=== PATIENT | male | born 1955 | race Caucasian/White ===

== ENCOUNTER → 2020-06-12 08:00 | Outpatient (BNVA) | payer SELFPAY | PROVIDERS: Visit Provider Physician Assistant Medical | DX: Z02.79 Encounter for issue of other medical certificate (principal) ==

== ENCOUNTER 2021-01-05 06:58 | Emergency (ER) | payer OTHER, SELFPAY ==
[2021-01-05] VITALS (10 sets, daily range): BP systolic 113–153; BP diastolic 80–98; PULSE 116–127; RESP 15–19; TEMP 36.5–36.9; O2SAT 96–98; BMI 47.7
--- NOTE | 2021-01-05 | ECG_ITS ---
Test Reason : CP Blood Pressure : / mmHG Vent. Rate : 122 BPM Atrial Rate : 122 BPM P-R Int : 208 ms QRS Dur : 106 ms QT Int : 312 ms P-R-T Axes : 000 -50 105 degrees QTc Int : 444 ms Sinus tachycardia with 1st degree A-V block with Premature supraventricular complexes Left anterior fascicular block Abnormal QRS-T angle, consider primary T wave abnormality Abnormal ECG No previous ECGs available Referred By: Solomon Yancey Electronically Signed By:REID DA SILVA
--- NOTE | ~2021-01-05 | XR_ITS ---
EXAMINATION: XR CHEST CLINICAL INFORMATION: Chest pain COMPARISON: None TECHNIQUE: Portable 9:14 AM view of the chest was obtained. FINDINGS: Low lung volumes. Evidence of previous cardiac surgery. Valvular replacement heart size is moderately enlarged. Findings favor CHF with cephalization of the pulmonary vasculature and fissural fluid. No major zones of airspace disease. No ectopic air. XR/XR chest 1V IMPRESSION: CHF as above.
--- NOTE | ~2021-01-05 | CT_ITS ---
EXAMINATION: CT HEAD WITHOUT CONTRAST CLINICAL INFORMATION: Lightheadedness. COMPARISON: None TECHNIQUE: Contiguous axial imaging was performed from the skull base to vertex without intravenous administration of contrast. Additional 2-D coronal and sagittal reformatted images are generated on the CT workstation and uploaded to PACS. This CT examination was performed using dose optimization techniques as appropriate, variously including the following: *Automated exposure control *Adjustment of mA and/or kV according to patient size (this includes techniques or standardized protocols for targeted exams where dose is matched to indication/reason for exam; i.e. extremities or head) *Use of iterative reconstruction technique DLP: 697 mGy-cm FINDINGS: There is no intracranial hemorrhage, hematoma, or extra-axial fluid collection. The ventricles are normal in size. There is no hydrocephalus, edema, or mass effect. There is subtle periventricular white matter gliosis suggested, slightly more conspicuous on the left. No edema or mass effect. No midline shift. There is no visible acute territorial infarct or mass lesion. The calvarium appears intact. There is no pneumocephalus or orbital emphysema. The visualized sinuses and middle ears and mastoid air cells show no significant mucosal thickening. There are no air-fluid levels. CT/CT head/brain wo con IMPRESSION: 1. No intracranial hemorrhage, hydrocephalus, or edema. 2. Subtle periventricular white matter gliosis, more conspicuous on the left. This may suggest chronic small vessel ischemic change. If clinically indicated, MRI may be considered for further characterization.
--- NOTE | 2021-01-05 09:11 | PC.NURSE ---
pt being seen by provider at this time
--- NOTE | 2021-01-05 10:00 | ED.GENADULT ---
HPI - General Adult General Chief complaint: Dizziness Stated complaint: dizziness Time Seen by Provider: 01/05/21 09:07 Source: patient Mode of arrival: ambulatory Limitations: no limitations History of Present Illness HPI narrative: Patient presents ED resolved dizziness described as lightheadedness and resolved chest palpitation. patient denies any room swimming or himself swimming. Patient states while driving in his car he felt lightheaded/tired and then had some heart palpitations. Patient denies any shortness of breath, slurred speech, loss of vision, or paralysis of extremities. Patient denies any leg swelling or calf pain. Patient states being compliant with his Lovenox twice a day injection. Patient denies any recent head trauma. Patient states no abdominal pain, chest pain, shortness of breath, leg swelling, calf pain, fever, chills. Patient states vaccinated against COVID. Presently patient is asymptomatic. Related Data Allergies Allergy/AdvReac Type Severity Reaction Status Date / Time No Known Allergies Allergy Verified 01/05/21 08:17 Review of Systems Review of Systems: Yes all other systems are reviewed and are negative Constitutional: Constitutional: Reports as per HPI and Reports no additional constitutional complaints Eyes: Eyes: Reports as per HPI and Reports no additional eye complaints ENT: Reports system reviewed and no additional complaints, except as documented, Reports as per HPI and Reports dizziness (described as lightheadedness) Cardiovascular: Cardiovascular: Reports as per HPI and Reports no additional cardiovascular complaints Comments: Heart palpitations Respiratory: Respiratory: Reports as per HPI and Reports no additional respiratory complaints Gastrointestinal: Gastrointestinal: Reports as per HPI and Reports no additional gastrointestinal complaints Genitourinary: Genitourinary: Reports no additional male genitourinary complaints and Reports as per HPI Musculoskeletal: Musculoskeletal: Reports no additional musculoskeletal complaints and Reports as per HPI Neurologic: Reports system reviewed and no additional complaints, except as documented, Reports as per HPI and Reports dizziness (described as lightheadedness) Psychiatric: Psychiatric: Reports no additional psychiatric complaints [facility] Past Medical History Medical History (Updated 01/06/21 @ 00:02 by Murali Marino) Aortic aneurysm Low iron Pulmonary embolism Surgical History (Updated 01/05/21 @ 08:16 by Nery Cobb) Heart valve replaced Social History Social History Advance Directives: No Advance Directives Information Provided: No Physical Exam Vital Signs: Vital Signs: Last Vital Signs Temp 97.7 F 01/05/21 15:27 Pulse 125 H 01/05/21 15:27 Resp 16 01/05/21 15:27 BP 128/91 H 01/05/21 15:27 Pulse Ox 96 01/05/21 15:27 Body Mass Index 47.7 Const: General: cooperative, healthy appearing, comfortable, no acute distress, well developed, alert and awake Orientation/consciousness: patient oriented x3 HENMT: Head: Yes normal to inspection, Yes No palpable skull fracture present, Yes normocephalic and Yes atraumatic Eyes: General: appearance normal, both eyes and all related structures Neck: Neck: Yes normal visual inspection, Yes full ROM, Yes no lymphadenopathy, Yes no meningeal signs, Yes trachea midline, Yes supple and No tender Chest: Chest palpation & inspection: normal inspection of the chest and normal palpation of entire chest wall Resp: Effort & Inspection: normal respiratory effort and able to speak in complete sentences Auscultation: clear to auscultation bilaterally Cardio: Jugular venous distension: no JVD Heart sounds: S1 normal heart sound present and S2 normal heart sound present GI: Inspection: Yes normal to inspection and No abdominal wall ecchymosis Palpation (GI): Soft to palpation, not firm, nontender, no guarding and not rigid : General: No CVA tenderness and Yes no CVA tenderness Back/Spine/Pelvis: Back: no CVA tenderness, No CVA tenderness and No back tenderness Skin: General skin exam: no rashes or lesions noted and elasticity normal Neuro: Other: negative slurred speech. negative facial droop. negative pronator drift. Finger to nose and rapid hand movement intact. negative rhomberg. General: patient oriented x3, gait normal, Normal light touch and pain sensation, no meningeal signs and CN's II-XI intact bilaterally Cranial nerves: Yes CN's II-XII intact bilaterally Extrem: General: Yes normal to inspection and Yes full ROM Psych: Appearance: grossly normal, well kempt and not disheveled Course Course Course Narrative: Patient presently asymptomatic. Negative for any neuro deficits. Patient tachycardic. Patient will have dry head CT. Patient will have cardiac evaluation including troponin and D-dimer. Patient also has thyroid level sent. Patient given fluids. Chest x-ray ordered. COVID swab ordered. Reevaluation(s) Reevaluation #1: Patient 1st troponin negative. Patient presently asymptomatic. D-dimer negative. Well's Score is 3. Thyroid level normal. patient given lopressor IV and fluids. Orthostatics negative. Patient walked to the bathroom with normal gait. D-dimer negative. Head CT negative for acute stroke. Unlikely patient having PE or any clots in the body not suspecting any carotid occlusion. Patient is on Lovenox b.i.d. for the past couple months since July. Case discussed with Dr. Rader and he does not believe patient needs chest CT aorta or head and neck CTA. BNP only 152. Chest x-ray negative for pneumonia. EKG negative for pneumonia. Once again patient presently asymptomatic. Patient denies any chest pain, dizziness or shorntess of breath. Time: 23:30 Reevaluation #2: Second troponin came back negative. Heart rate on monitor 118. Patient presently asymptomatic. Once again no source of infection or cause for tachycardia. D-dimer negative. Head CT normal. Chest x-ray negative for any pneumonia. Patient is not anemic. It was discussed with patient for possible observation/admission overnight and for me to speak to hospitalist to see if that is indicated, but patient refused. Patient states he has been feeling well since coming to the ER and would like to be discharged and follow-up with [employer]. Patient states he will call his account [employer] for after being discharged for pointing on Friday. Patient informed to return to the ED if he has any symptoms slurred speech, loss of vision, paralysis of extremities, weakness, dizziness, headache, chest pain, shortness of breath, or any other concerning symptoms. Time: 15:08 Medical Decision Making MDM Narrative Medical decision making narrative: Tachycardia, palpitations Lab Data Result diagrams: 01/05/21 10:02 01/05/21 10:00 Labs: Lab Results 01/05/21 01/05/21 01/05/21 Range/Units 10:00 10:00 10:00 WBC (4.8-10.8) X10*3/uL RBC (4.60-5.80) X10*6/uL Hgb (14.0-18.0) g/dl Hct (42-52) % MCV (80-98) fL MCH (27.0-33.0) pg MCHC (31.0-36.0) g/dl RDW (11.0-16.0) % Plt Count (160-400) X10*3/uL MPV (9.4-12.4) fL Immature Gran % (Auto) (0.0-0.4) % Neut % (Auto) (45-73) % Lymph % (Auto) (20-40) % Gilliam % (Auto) (2-11) % Eos % (Auto) (0-4) % Baso % (Auto) (0-2) % Lymph # (Auto) (1.2-4.9) X10*3/uL [place]illiam # (Auto) (0.1-1.2) X10*3/uL Eos # (Auto) (0.0-0.4) X10*3/uL Baso # (Auto) (0.0-0.2) X10*3/uL Abs Immat Gran (auto) (0.00-0.03) X10*3/uL Absolute Neuts (auto) (2.0-8.3) X10*3/uL Absolute Nucleated RBC (0.0-0.012) X10*3/uL Nucleated RBC % (auto) (0.0-0.2) /100WBC PT 12.4 (9.9-13.0) SEC INR 1.1 (0.9-1.1) APTT 48.4 H (24.1-38.0) SEC D-Dimer < 200 NG/ML Sodium 141 (135-145) mmol/L Potassium 4.4 (3.3-5.1) mmol/L Chloride 107 (96-108) mmol/L Carbon Dioxide 28 (22-29) mmol/L Anion Gap 10 L (12-20) BUN 17 H (9-16) mg/dL Creatinine 0.87 (0.5-1.4) mg/dL Estim Creat Clear Calc 116.7 Estimated GFR > 60 Random Glucose 91 (60-115) mg/dL Calcium 9.2 (8.4-10.2) mg/dL Total Bilirubin 0.4 (0.0-1.0) mg/dL AST 18 (5-37) U/L ALT 24 (0-40) U/L Alkaline Phosphatase 74 (39-117) U/L Troponin I High Sens 5.4 (<3.5-35.0) ng/L B-Natriuretic Peptide 152 H (<100) pg/mL Total Protein 6.1 L (6.5-8.0) g/dL Albumin 3.9 (3.5-5.0) g/dL TSH 0.78 (0.32-4.0) uIU/mL Urine Color Urine Appearance Urine pH (5.0-8.0) Ur Specific [place] (1.005-1.025) Urine Protein (NEG-TRACE) MG/DL Urine Glucose (UA) (NEG) MG/DL Urine Ketones (NEG) MG/DL Urine Blood (NEG) Urine Nitrite (NEG) Ur Leukocyte Esterase (NEG) COVID-19 ([facility]IN) (Negative) COVID-19 Clin Com 01/05/21 01/05/21 01/05/21 Range/Units 10:02 10:02 11:26 WBC 6.2 (4.8-10.8) X10*3/uL RBC 5.06 (4.60-5.80) X10*6/uL Hgb 15.0 (14.0-18.0) g/dl Hct 45.3 (42-52) % MCV 89.5 (80-98) fL MCH 29.6 (27.0-33.0) pg MCHC 33.1 (31.0-36.0) g/dl RDW 14.8 (11.0-16.0) % Plt Count 255 (160-400) X10*3/uL MPV 9.6 (9.4-12.4) fL Immature Gran % (Auto) 1.0 H (0.0-0.4) % Neut % (Auto) 57.4 (45-73) % Lymph % (Auto) 27.1 (20-40) % Gilliam % (Auto) 12.1 H (2-11) % Eos % (Auto) 1.9 (0-4) % Baso % (Auto) 0.5 (0-2) % Lymph # (Auto) 1.7 (1.2-4.9) X10*3/uL Gilliam # (Auto) 0.8 (0.1-1.2) X10*3/uL Eos # (Auto) 0.1 (0.0-0.4) X10*3/uL Baso # (Auto) 0.0 (0.0-0.2) X10*3/uL Abs Immat Gran (auto) 0.06 H (0.00-0.03) X10*3/uL Absolute Neuts (auto) 3.6 (2.0-8.3) X10*3/uL Absolute Nucleated RBC 0.000 (0.0-0.012) X10*3/uL Nucleated RBC % (auto) 0.0 (0.0-0.2) /100WBC PT (9.9-13.0) SEC INR (0.9-1.1) APTT (24.1-38.0) SEC D-Dimer NG/ML Sodium (135-145) mmol/L Potassium (3.3-5.1) mmol/L Chloride (96-108) mmol/L Carbon Dioxide (22-29) mmol/L Anion Gap (12-20) BUN (9-16) mg/dL Creatinine (0.5-1.4) mg/dL Estim Creat Clear Calc Estimated GFR Random Glucose (60-115) mg/dL Calcium (8.4-10.2) mg/dL Total Bilirubin (0.0-1.0) mg/dL AST (5-37) U/L ALT (0-40) U/L Alkaline Phosphatase (39-117) U/L Troponin I High Sens (<3.5-35.0) ng/L B-Natriuretic Peptide (<100) pg/mL Total Protein (6.5-8.0) g/dL Albumin (3.5-5.0) g/dL TSH (0.32-4.0) uIU/mL Urine Color YELLOW Urine Appearance CLEAR Urine pH 6.0 (5.0-8.0) Ur Specific [place] 1.020 (1.005-1.025) Urine Protein NEG (NEG-TRACE) MG/DL Urine Glucose (UA) NEG (NEG) MG/DL Urine Ketones NEG (NEG) MG/DL Urine Blood NEG (NEG) Urine Nitrite NEG (NEG) Ur Leukocyte Esterase NEG (NEG) COVID-19 ([facility]ALLIN) Negative (Negative) COVID-19 Clin Com See Note 01/05/21 Range/Units 13:32 WBC (4.8-10.8) X10*3/uL RBC (4.60-5.80) X10*6/uL Hgb (14.0-18.0) g/dl Hct (42-52) % MCV (80-98) fL MCH (27.0-33.0) pg MCHC (31.0-36.0) g/dl RDW (11.0-16.0) % Plt Count (160-400) X10*3/uL MPV (9.4-12.4) fL Immature Gran % (Auto) (0.0-0.4) % Neut % (Auto) (45-73) % Lymph % (Auto) (20-40) % Gilliam % (Auto) (2-11) % Eos % (Auto) (0-4) % Baso % (Auto) (0-2) % Lymph # (Auto) (1.2-4.9) X10*3/uL [place]illiam # (Auto) (0.1-1.2) X10*3/uL Eos # (Auto) (0.0-0.4) X10*3/uL Baso # (Auto) (0.0-0.2) X10*3/uL Abs Immat Gran (auto) (0.00-0.03) X10*3/uL Absolute Neuts (auto) (2.0-8.3) X10*3/uL Absolute Nucleated RBC (0.0-0.012) X10*3/uL Nucleated RBC % (auto) (0.0-0.2) /100WBC PT (9.9-13.0) SEC INR (0.9-1.1) APTT (24.1-38.0) SEC D-Dimer NG/ML Sodium (135-145) mmol/L Potassium (3.3-5.1) mmol/L Chloride (96-108) mmol/L Carbon Dioxide (22-29) mmol/L Anion Gap (12-20) BUN (9-16) mg/dL Creatinine (0.5-1.4) mg/dL Estim Creat Clear Calc Estimated GFR Random Glucose (60-115) mg/dL Calcium (8.4-10.2) mg/dL Total Bilirubin (0.0-1.0) mg/dL AST (5-37) U/L ALT (0-40) U/L Alkaline Phosphatase (39-117) U/L Troponin I High Sens 7.6 (<3.5-35.0) ng/L B-Natriuretic Peptide (<100) pg/mL Total Protein (6.5-8.0) g/dL Albumin (3.5-5.0) g/dL TSH (0.32-4.0) uIU/mL Urine Color Urine Appearance Urine pH (5.0-8.0) Ur Specific [place] (1.005-1.025) Urine Protein (NEG-TRACE) MG/DL Urine Glucose (UA) (NEG) MG/DL Urine Ketones (NEG) MG/DL Urine Blood (NEG) Urine Nitrite (NEG) Ur Leukocyte Esterase (NEG) COVID-19 ([facility]IN) (Negative) COVID-19 Clin Com ECG Data Interpretation: Sinus tachycardia with 1st degree AV block. CT 208, Vent 122, QTC 444. negatie stemi Discharge Plan Discharge Clinical Impression: Sinus tachycardia, Heart palpitations, Dizziness Patient Disposition: Home, Self-Care Instructions: Heart Palpitations (ED), Dizziness (ED), Tachycardia (ED) Additional Instructions: Your blood work came back normal. EKG and troponin negative for heart attack. D-dimer came back negative for risk of blood clot. Chest x-ray came back negative for pneumonia. BNP came back 152. Thyroid level came back normal. Your blood cell count came back normal. Urine came back negative for urinary tract infection. Head CT scan came back negative for stroke. Your COVID swab came back negative. Please call your cardiology. immediately after discharge to schedule follow-up appointment as soon as possible. Return to the ED immediately for any slurred speech, loss of vision, paralysis of extremities, facial droop, inability to walk, chest pain, shortness of breath, leg swelling, calf pain, coughing up blood, or any other concerning symptoms. Interventions: ED Discharge Assessment Last Done: 01/05/21 15:45 Discharge Date/Time: 01/05/21 15:45 Print Language: Monegasque
[2021-01-05 10:09] LABS: MANUAL DIFF FLAG NO
[2021-01-05 10:14] LABS: Basophils Percent Auto 0.5 % (0-2); Eosinophils Absolute Auto 0.1 X10*3/uL (0.0-0.4); Eosinophils Percent Auto 1.9 % (0-4); Hematocrit 45.3 % (42-52); Imm Gran Abs Auto 0.06 X10*3/uL (0.00-0.03); Lymphocytes Absolute Auto 1.7 X10*3/uL (1.2-4.9); Lymphocytes Percent Auto 27.1 % (20-40); Mean Corpuscular HGB Conc 33.1 g/dl (31.0-36.0); Mean Corpuscular Hemoglobin 29.6 pg (27.0-33.0); Mean Corpuscular Volume 89.5 fL (80-98); Mean Platelet Volume 9.6 fL (9.4-12.4); Monocytes Absolute Auto 0.8 X10*3/uL (0.1-1.2); Monocytes Percent Auto 12.1 % (2-11); Neutrophils Absolute Auto 3.6 X10*3/uL (2.0-8.3); Neutrophils Percent Auto 57.4 % (45-73); Platelet Count 255 X10*3/uL (160-400); Red Blood Count 5.06 X10*6/uL (4.60-5.80); Red Cell Distribution Width 14.8 % (11.0-16.0); White Blood Count 6.2 X10*3/uL (4.8-10.8)
[2021-01-05 10:28] LABS: COVID-19 Test Negative (Negative)
[2021-01-05] MEDS: 0.9 % Sodium Chloride 1,000 ML 999 ML IV ×2 (10:30)
[2021-01-05 10:36] LABS: INTERNATIONAL NORM RATIO 1.1 (0.9-1.1); Prothrombin Time 12.4 SEC (9.9-13.0)
[2021-01-05 10:39] LABS: Partial Thromboplastin Time 48.4 SEC (24.1-38.0)
[2021-01-05 10:40] LABS: D Dimer < 200 NG/ML
[2021-01-05 10:44] LABS: Alanine Aminotransferase 24 U/L (0-40); Albumin Level 3.9 g/dL (3.5-5.0); Alkaline Phosphatase 74 U/L (39-117); Anion Gap 10 (12-20); Aspartate Amino Transferase 18 U/L (5-37); Bilirubin Total 0.4 mg/dL (0.0-1.0); Blood Urea Nitrogen 17 mg/dL (9-16); Calcium 9.2 mg/dL (8.4-10.2); Carbon Dioxide 28 mmol/L (22-29); Chloride 107 mmol/L (96-108); Creatinine Clr Calc Pharmacy 116.7; Estimated Glomerular Filt Rate > 60; Glucose Random 91 mg/dL (60-115); Potassium 4.4 mmol/L (3.3-5.1); Sodium 141 mmol/L (135-145); Total Protein 6.1 g/dL (6.5-8.0)
[2021-01-05 10:49] LABS: B Type Natriuretic Peptide 152 pg/mL (<100); Troponin-I High Sensitivity 5.4 ng/L (<3.5-35.0)
[2021-01-05 11:04] LABS: TSH reflex Free T4 0.78 uIU/mL (0.32-4.0)
[2021-01-05] MEDS: Metoprolol Tartrate 5 MG/5 ML VIAL IVPUSH (11:28)
[2021-01-05 11:34] LABS: Glucose Urine UA NEG (NEG); Leukocyte Esterase Urine NEG (NEG); Nitrite Urine NEG (NEG); Urine Blood NEG (NEG); Urine Ketones NEG (NEG); Urine Protein NEG (NEG-TRACE)
[2021-01-05 11:37] LABS: Appearance Urine CLEAR; Color Urine YELLOW
[2021-01-05 14:05] LABS: Troponin-I High Sensitivity 7.6 ng/L (<3.5-35.0)
== END 2021-01-05 15:45 | disposition home or self-care (01) ==
PROVIDERS: Physician Assistant; Emergency Provider Internal Medicine; PCP Internal Medicine
DX: R00.2 Palpitations (principal); R42 Dizziness and giddiness; R00.0 Tachycardia, unspecified; Z20.822 Contact with and (suspected) exposure to COVID-19; Z86.711 Personal history of pulmonary embolism; Z95.2 Presence of prosthetic heart valve
CPT/HCPCS: 36415; 70450; 71045; 80053; 81003; 83880; 84443; 84484; 85025; 85379; 85610; 85730; 87635; 93005; 96361; 96374; 99284; 99285

== ENCOUNTER → 2021-07-05 08:45 | Outpatient (BNVA) | payer SELFPAY | PROVIDERS: PCP Internal Medicine; Visit Provider Physician Assistant | DX: Z02.79 Encounter for issue of other medical certificate (principal) ==

== ENCOUNTER → 2022-07-05 07:49 | Outpatient (BNVA) | payer SELFPAY | PROVIDERS: PCP Internal Medicine; Visit Provider Internal Medicine | DX: Z02.79 Encounter for issue of other medical certificate (principal) ==

== ENCOUNTER → 2023-07-04 08:19 | Outpatient (BNVA) | payer SELFPAY | PROVIDERS: PCP Internal Medicine; Visit Provider Physician Assistant | DX: Z02.79 Encounter for issue of other medical certificate (principal) ==

== ENCOUNTER → 2024-07-02 08:24 | Outpatient (BNVA) | payer SELFPAY | PROVIDERS: PCP Internal Medicine; Visit Provider Physician Assistant | DX: Z02.79 Encounter for issue of other medical certificate (principal) ==